=== PATIENT | male | born 1990 | race Caucasian/White ===

== ENCOUNTER 2017-08-09 16:05 | Emergency (ER) | payer OTHER ==
[2017-08-09 16:22] VITALS: RESP 16
--- NOTE | 2017-08-09 16:54 | EDPHY ---
H & P Stated Complaint: DETOX FROM ETOH/LAST DRINK YESTERDAY Time Seen by Provider: 08/09/17 16:53 HPI/ROS: HPI: This is a 27-year-old male who presents Chief Complaint: DETOX FROM ETOH/LAST DRINK YESTERDAY Location: Body Quality: Shakiness Duration: Since yesterday Signs and Symptoms: No fever, no chills, no abdominal pain, no nausea, no vomiting, no chest pain, shortness of breath Timing: Gradual onset Severity: Moderate Context: Patient has a history of bipolar 1 disorder on Depakote and Risperdal ; originally from [facility] followed by psychiatry there. He came to [facility] in May for school and started to drink 10-12 shots of vodka daily. Last drink was yesterday at 4:00 p.m.. His mother flew in from [facility] yesterday at 4:00 p.m. as he is complaining of not able to sleep last week; despite taking Ambien, as well as shakiness. He denies dizziness/ suicidal ideation/homicidal ideation/paranoia/hallucinations. Mother reports that he is calm and at his baseline. Parents have made arrangements through psychiatrist to have him admitted on Sunday at 2:00 p.m. to alcohol inpatient rehab facility. They are requesting medical clearance and medications interim. Modifying Factors: See above Comment: ROS: see HPI Constitutional: No fever, no chills, no weight loss Eyes: No blurred vision Respiratory: No shortness of breath, no cough Cardiovascular: No chest pain Gastrointestinal: No nausea, no vomiting, no diarrhea Genitourinary: No dysuria Extremities: No myalgias Neurologic: No weakness, no numbness Skin: No rashes Hematologic: No bruising, no bleeding MEDICAL/SURGICAL/SOCIAL HISTORY: Medical history: Generally healthy. Does not take any regular medications. Surgical history: [place] teeth removal. Social history: Strong family support CONSTITUTIONAL: Well-developed well-nourished polite and calm, tidy appearance , awake and alert, no obvious distress HEENT: Atraumatic and normocephalic, PERRL, EOMI. Tympanic membranes clear. Oropharynx clear, no exudate and moist pink mucosa. Airway patent. No lymphadenopathy. No meningismus. Cardiovascular: Normal S1/S2, regular rate, regular rhythm, without murmur rub or gallop. PULMONARY/CHEST: Symmetrical and nontender. Clear to auscultation bilaterally. Good air movement. No accessory muscle usage. ABDOMEN: Soft, nondistended, nontender, no rebound, no guarding, no peritoneal signs, no masses or organomegaly. No CVAT. EXTREMITIES: 2/2 pulses, no deformities, no clubbing, no cyanosis or edema. NEUROLOGICAL: no focal neuro deficits. GCS 15. Mild hand tremors noted. No seizure activity. PSYCH: Good eye contact, no flight of ideas, organized thought process, good insight and judgment, no auditory and visual command hallucinations, no suicidal ideation with a plan, no homicidal ideation, not paranoid SKIN: Warm and dry, no diaphoresis, no erythema. no rash. Good capillary refill. Source: Patient Exam Limitations: No limitations - Personal History Current Tetanus/Diphtheria Vaccine: Yes - Medical/Surgical History Hx Asthma: No Hx Chronic Respiratory Disease: No Hx Diabetes: No Hx Cardiac Disease: No Hx Renal Disease: No Hx Cirrhosis: No Hx Alcoholism: Yes Hx HIV/AIDS: No Hx Splenectomy or Spleen Trauma: No Other PMH: unknown - Social History Smoking Status: Current every day smoker Constitutional: Initial Vital Signs Temperature (C) 37 C 08/09/17 16:20 Heart Rate 70 08/09/17 16:20 Respiratory Rate 16 08/09/17 16:20 Blood Pressure 134/86 H 08/09/17 16:20 O2 Sat (%) 94 08/09/17 16:20 O2 Delivery Mode Room Air Allergies/Adverse Reactions: No Known Allergies Allergy (Verified 08/09/17 16:19) Home Medications: Medication Instructions Recorded Ambien 08/09/17 Depakote 08/09/17 Risperdal 08/09/17 Medical Decision Making ED Course/Re-evaluation: Labs, UDS, IVF, IV medications, oral medications ordered CIWA equals 9 1 L normal saline, IV Ativan 1 mg, PO Librium 25 mg given 1750: Reviewed labs and grossly unremarkable; valproic acid level subtherapeutic Repeat CIWA equals 2 Discharged to his mother who contracts for his safety and she will be monitoring him / as well as traveling back to [place] and admitting into rehab facility there. Patient given Librium prepack. No signs of delirium/seizures/electrolyte imbalances/arrhythmias/suicidal ideation/homicidal ideation/psychosis Differential Diagnosis: Altered mental status including but not limited to hypoglycemia, infectious process, electrolyte abnormality, head injury and intoxicants. - Data Points Laboratory Results: Laboratory Results 08/09/17 16:55 08/09/17 16:55 08/09/17 10 16:55 16:55 WBC 5.39 10^3/uL 10^3/uL (3.80-9.50) RBC 4.34 10^6/uL L 10^6/uL (4.40-6.38) Hgb 14.5 g/dL g/dL (13.7-17.5) Hct 40.1 % % (40.0-51.0) MCV 92.4 fL fL (81.5-99.8) MCH 33.4 pg pg (27.9-34.1) MCHC 36.2 g/dL g/dL (32.4-36.7) RDW 12.3 % % (11.5-15.2) Plt Count 211 10^3/uL 10^3/uL (150-400) MPV 8.2 fL L fL (8.7-11.7) Neut % (Auto) 79.2 % H % (39.3-74.2) Lymph % (Auto) 7.4 % L % (15.0-45.0) [place] % (Auto) 12.2 % % (4.5-13.0) Eos % (Auto) 0.2 % L % (0.6-7.6) Baso % (Auto) 0.6 % % (0.3-1.7) Nucleat RBC Rel Count 0.0 % % (0.0-0.2) Absolute Neuts (auto) 4.27 10^3/uL 10^3/uL (1.70-6.50) Absolute Lymphs (auto) 0.40 10^3/uL L 10^3/uL (1.00-3.00) Absolute Monos (auto) 0.66 10^3/uL 10^3/uL (0.30-0.80) Absolute Eos (auto) 0.01 10^3/uL L 10^3/uL (0.03-0.40) Absolute Basos (auto) 0.03 10^3/uL 10^3/uL (0.02-0.10) Absolute Nucleated RBC 0.00 10^3/uL 10^3/uL (0-0.01) Immature Gran % 0.4 % % (0.0-1.1) Immature Gran # 0.02 10^3/uL 10^3/uL (0.00-0.10) Sodium 135 mEq/L mEq/L (134-144) Potassium 3.6 mEq/L mEq/L (3.5-5.2) Chloride 97 mEq/L mEq/L (97-110) Carbon Dioxide 26 mEq/l mEq/l (22-31) Anion Gap 12 mEq/L mEq/L (8-16) BUN 15 mg/dL mg/dL (7-23) Creatinine 0.9 mg/dL mg/dL (0.7-1.3) Estimated GFR > 60 Glucose 128 mg/dL H mg/dL (70-100) Calcium 9.8 mg/dL mg/dL (8.5-10.4) TSH 1.330 uIU/mL uIU/mL (0.465-4.680) Salicylates < 1.0 mg/dL L mg/dL (2.0-20.0) Acetaminophen < 10 mcg/mL L mcg/mL (10-30) Valproic Acid 29.2 mcg/mL L mcg/mL (50.0-150.0) Ethyl Alcohol < 10 mg/dL mg/dL (0-10) Medications Given: Discontinued Medications Chlordiazepoxide (Librium 25 Mg Prepack#6) 1 btl TAKEHOME EDNOW ONE Stop: 08/09/17 17:49 Last Admin: 08/09/17 18:02 Dose: 1 btl Chlordiazepoxide HCl (Librium) 25 mg PO EDNOW ONE Stop: 08/09/17 17:03 Last Admin: 08/09/17 17:13 Dose: 25 mg Sodium Chloride (Ns) 1,000 mls @ 0 mls/hr IV ONCE ONE PRN Reason: Wide Open Stop: 08/09/17 17:16 Last Admin: 08/09/17 17:16 Dose: 1,000 mls Lorazepam (Ativan Injection) 1 mg IVP EDNOW ONE Stop: 08/09/17 17:03 Last Admin: 08/09/17 17:13 Dose: 1 mg Departure - Departure Disposition: Other Psych, Not [facility] Clinical Impression: Alcohol abuse Alcohol withdrawal Qualifiers: Complication of substance-induced condition: uncomplicated Qualified Code(s): F10.230 - Alcohol dependence with withdrawal, uncomplicated Condition: Good Instructions: Alcohol Withdrawal (ED), Abuse of Alcohol (ED) Referrals: [facility] [Outside] - As per Instructions
[2017-08-09] MEDS ORDERED: LORazepam 2 MG/ML INJ IVP ONE (17:02)
[2017-08-09] MEDS ORDERED: chlordiazePOXIDE 25 MG CAP PO ONE (17:02)
[2017-08-09 17:09] LABS: % IMMATURE GRANULYOCYTES 0.4 % (0.0-1.1); ABSOLUTE IMMATURE GRANULOCYTES 0.02 10^3/uL (0.00-0.10); ADD DIFF? NO; ADD MORPH? NO; ADD SCAN? NO; ATYPICAL LYMPHOCYTE FLAG 0 (0-99); FRAGMENT RBC FLAG 20 (0-99); HEMATOCRIT 40.1 % (40.0-51.0); HEMOGLOBIN 14.5 g/dL (13.7-17.5); LEFT SHIFT FLG 0 (0-99); LIPEMIA HEMOLYSIS FLAG 90 (0-99); MEAN CELL HEMOGLOBIN 33.4 pg (27.9-34.1); MEAN CELL HEMOGLOBIN CONCENTR. 36.2 g/dL (32.4-36.7); MEAN CELL VOLUME 92.4 fL (81.5-99.8); MEAN PLATELET VOLUME 8.2 fL (8.7-11.7); PLATELET CLUMPS FLAG 0 (0-99); PLATELET COUNT 211 10^3/uL (150-400); RED BLOOD CELL COUNT 4.34 10^6/uL (4.40-6.38); RED CELL DISTRIBUTION WIDTH 12.3 % (11.5-15.2)
[2017-08-09] MEDS ORDERED: NS 1,000 ML IV ONE (17:15)
[2017-08-09 17:28] LABS: ANION GAP 12 mEq/L (8-16); CALCIUM 9.8 mg/dL (8.5-10.4); CARBON DIOXIDE 26 mEq/l (22-31); CHLORIDE 97 mEq/L (97-110); CREATININE 0.9 mg/dL (0.7-1.3); ETHANOL SERUM < 10 mg/dL (0-10); GLOMERULAR FILTRATION RATE > 60; GLUCOSE 128 mg/dL (70-100); POTASSIUM 3.6 mEq/L (3.5-5.2); SALICYLATE < 1.0 mg/dL (2.0-20.0); SODIUM 135 mEq/L (134-144)
[2017-08-09] MEDS ORDERED: CHLORDIAZEPOXIDE 25MG PREPK#6 BTL TAKEHOME ONE (17:48)
[2017-08-09 18:25] VITALS: BP 129/77; PULSE 80; TEMP 98.2; O2SAT 93
== END 2017-08-09 18:31 ==
DX: F10.230 Alcohol dependence with withdrawal, uncomplicated (principal); F17.200 Nicotine dependence, unspecified, uncomplicated
CPT/HCPCS: 96374; G0480; J2060